=== PATIENT | female | born 1995 | race Caucasian/White ===

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

== ENCOUNTER 2017-03-19 18:35 | Emergency (ER) | payer SELFPAY ==
[~2017-03-19] VITALS: Ht 162.6 cm; Wt 71.5 kg
[~2017-03-19 18:35] MED LIST changes: +IBUP-1542 PO
[2017-03-19 19:04] VITALS: Ht 162.6 cm; Wt 71.5 kg
[2017-03-20] MEDS ORDERED: HYDR-906 PO (04:25)
[2017-03-20] MEDS ORDERED: IBUP-1542 PO (04:25)
[2017-03-20] MEDS ORDERED: AMOX1TAB10 PO (04:25)
== END 2017-03-19 20:14 | disposition left against medical advice (07) ==
LOC: FTE 18:35
DX: Z53.21 Procedure and treatment not carried out due to patient leaving prior to being seen by health care provider (principal)

== ENCOUNTER 2017-03-20 00:07 | Emergency (ER) | payer OTHER ==
[~2017-03-20] VITALS: Ht 160 cm; Wt 71.5 kg
[2017-03-20 00:11] VITALS: Ht 160 cm; Wt 71.5 kg
[2017-03-20] MEDS ORDERED: traMADol 50 MG TAB PO ONE (04:00)
[2017-03-20] MEDS ORDERED: IBUPROFEN 600 MG TAB PO ONE (04:00)
[2017-03-20] MEDS ORDERED: HYDR-906 PO (04:25)
[2017-03-20] MEDS ORDERED: AMOX1TAB10 PO (04:25)
[2017-03-20] MEDS ORDERED: IBUP-1542 PO (04:25)
--- NOTE | 2017-03-20 04:41 | ERD ---
ER Documentation Chief Complaint Date/Time DATE: 03/20/17 TIME: 04:38 Chief Complaint toothache HPI 22-year-old female presents here in emergency department for complaints of toothache left upper molar pain that started today. Patient discussed the pain as sharp pain, 6/10 scale, complains of pain on the left upper second and third molar. Patient did not take any medications to help with symptoms. ROS All systems reviewed and are negative except as per history of present illness. Medications Home Meds Active Scripts Hydrocodone/Acetaminophen (Cheyenne 5-325 Tablet) 1 Each Tablet, 1 TAB PO Q6H Y for SEVERE PAIN LEVEL 7-10, #20 TAB Prov:PORTER BURCIAGA NP 03/20/17 Ibuprofen* (Motrin*) 600 Mg Tab, 600 MG PO Q6H Y for PAIN AND OR ELEVATED TEMP, #30 TAB Prov:PORTER BURCIAGA NP 03/20/17 Amoxicillin/Potassium Clav (Amox-Clav 875-125 mg Tablet) 875-125 mg Tab, 1 TAB PO BID for 10 Days, #20 TAB Prov:PORTER BURCIAGA NP 03/20/17 Ibuprofen* (Motrin*) 600 Mg Tab, 600 MG PO Q6H Y for PAIN AND OR ELEVATED TEMP, #30 TAB Prov:KIMBER ROSALES MD 09/24/16 Reported Medications Vit-Iron Fumarate-FA ( Tablet) 1 Each Tablet, 1 EACH PO DAILY 04/03/13 Allergies Allergies: Coded Allergies: No Known Allergy (Unverified , 04/03/13) PMhx/Soc Medical and Surgical Hx: pt denies Surgical Hx History of Surgery: No Anesthesia Reaction: No Hx Neurological Disorder: No Hx Respiratory Disorders: Yes (Asthma) Hx Cardiac Disorders: No Hx Psychiatric Problems: No Hx Miscellaneous Medical Probl: No Hx Alcohol Use: No Hx Substance Use: No Hx Tobacco Use: No Smoking Status: Never smoker FmHx Family History: No coronary disease, No diabetes, No other Physical Exam Vitals Vital Signs Date Time Temp Pulse Resp B/P Pulse Ox O2 Delivery O2 Flow Rate FiO2 03/20/17 00:11 97.8 85 20 118/79 100 Physical Exam GENERAL: The patient is well developed and appropriate for usual state of health, in no apparent distress. HEENT: Atraumatic. Ears: Normal tympanic membrane, no erythema or bulging. No ear canal swelling. No ear discharge. Nose: normal nasal turbinates, no erythema or swelling. Normal nasal discharge. Throat: oropharynx clear. No tonsillar swelling or tonsillar exudates. No lymphadenopathy.noted decayed left upper second And third molar, no erythema noted, no gingival inflammation noted , no facial swelling. CHEST: Clear to auscultation bilaterally. There are no rales, wheezes or rhonchi. HEART: Regular rate and rhythm. No murmurs, clicks, rubs or gallops. No S3 or S4. ABDOMEN: Soft, nontender and nondistended. Good bowel sounds. No rebound or guarding. No gross peritonitis. No gross organomegaly or masses. No Reynoso sign or McBurney point tenderness. BACK: No midline or flank tenderness. EXTREMITIES: Equal pulses bilaterally. There is no peripheral clubbing, cyanosis or edema. No focal swelling or erythema. Full range of motion. Grossly neurovascularly intact. NEURO: Alert and oriented. Cranial nerves 2-12 intact. Motor strength in all 4 extremities with 5/5 strength. Sensation grossly intact. Normal speech and gait. SKIN: There is no apparent rash or petechia. The skin is warm and dry. HEMATOLOGIC AND LYMPHATIC: There is no evidence of excessive bruising or lymphedema. No gross cervical, axillary, or inguinal lymphadenopathy. Results 24 hrs Current Medications Medications (Trade) Dose Ordered Sig/Juan Pablo Route PRN Reason Start Time Stop Time Status Last Admin Dose Admin Ibuprofen (Motrin) 600 mg ONCE ONCE PO 03/20/17 04:00 03/20/17 04:01 DC 03/20/17 03:44 Tramadol HCl (Ultram) 50 mg ONCE ONCE PO 03/20/17 04:00 03/20/17 04:01 DC 03/20/17 03:44 Patient was given medication for pain here in emergency department, after treatment, patient verbalized feeling much better. Patient's pain is improved. Procedures/MDM Medical decision making: Patient's symptoms likely consistent with tooth decay causing dental pain. Patient does not have any symptoms of any dental abscess. Did not have any trauma and affected area. Patient is advised to see dentist, was given prescription for Augmentin to prevent infection, ibuprofen and Cheyenne Zofrld Zofran with primary doctor in 2-3 days for reevaluation of symptoms. Patient is advised to return to emergency department for any worsening symptoms. Disposition: Home. Stable. Departure Diagnosis: Primary Impression: Pain, dental Condition: Stable Patient Instructions: Dental Pain PORTER BURCIAGA NP Mar 20, 2017 04:41
== END 2017-03-20 05:03 | disposition home or self-care (01) ==
LOC: FTE 00:07
DX: K08.89 Other specified disorders of teeth and supporting structures (principal); J45.909 Unspecified asthma, uncomplicated
CPT/HCPCS: Z7502; Z7610; 99284

== ENCOUNTER 2017-05-30 01:21 | Emergency (ER) | payer OTHER ==
[~2017-05-30] VITALS: Ht 162.6 cm; Wt 72.0 kg
[~2017-05-30 01:21] MED LIST changes: +AMOX1TAB10 PO; +HYDR-906 PO
[2017-05-30 01:24] VITALS: Ht 162.6 cm; Wt 72.0 kg
[2017-05-30] MEDS ORDERED: IBUP-1542 PO (02:40)
[2017-05-30] MEDS ORDERED: TRAM50TA2 PO (02:40)
[2017-05-30] MEDS ORDERED: AMOX1TAB10 PO (02:40)
--- NOTE | 2017-05-30 02:59 | ERD ---
ER Documentation Chief Complaint Chief Complaint Left upper molar pain for a couple of days HPI 22-year-old female presents here to emergency department for complaints of left upper third molar pain that started 3 days ago. Patient describes the pain as throbbing pain, 8/10 scale, as was upon eating. Patient denies any fever or chills. Patient denies any facial swelling. Patient denies any trauma in affected area. Patient is able to open or close her mouth without any difficulty. ROS All systems reviewed and are negative except as per history of present illness. Medications Home Meds Active Scripts Amoxicillin/Potassium Clav (Amox-Clav 875-125 mg Tablet) 875-125 mg Tab, 1 TAB PO BID for 7 Days, #14 TAB Prov:PORTER BURCIAGA NP 05/30/17 Tramadol HCl (Tramadol HCl) 50 Mg Tablet, 50 MG PO Q6 for SEVERE PAIN LEVEL 7-10 , #20 TAB Prov:PORTER BURCIAGA NP 05/30/17 Ibuprofen* (Motrin*) 600 Mg Tab, 600 MG PO Q6H Y for PAIN AND OR ELEVATED TEMP, #30 TAB Prov:PORTER BURCIAGA NP 05/30/17 Hydrocodone/Acetaminophen (Sever[place] 5-325 Tablet) 1 Each Tablet, 1 TAB PO Q6H Y for SEVERE PAIN LEVEL 7-10, #20 TAB Prov:PORTER BURCIAGA NP 03/20/17 Ibuprofen* (Motrin*) 600 Mg Tab, 600 MG PO Q6H Y for PAIN AND OR ELEVATED TEMP, #30 TAB Prov:PORTER BURCIAGA NP 03/20/17 Amoxicillin/Potassium Clav (Amox-Clav 875-125 mg Tablet) 875-125 mg Tab, 1 TAB PO BID for 10 Days, #20 TAB Prov:PORTER BURCIAGA NP 03/20/17 Ibuprofen* (Motrin*) 600 Mg Tab, 600 MG PO Q6H Y for PAIN AND OR ELEVATED TEMP, #30 TAB Prov:KIMBER ROSALES MD 09/24/16 Reported Medications Vit-Iron Fumarate-FA ( Tablet) 1 Each Tablet, 1 EACH PO DAILY 04/03/13 Allergies Allergies: Coded Allergies: No Known Allergy (Unverified , 04/03/13) PMhx/Soc Medical and Surgical Hx: pt denies Surgical Hx History of Surgery: No Anesthesia Reaction: No Hx Neurological Disorder: No Hx Respiratory Disorders: Yes (Asthma) Hx Cardiac Disorders: No Hx Psychiatric Problems: No Hx Miscellaneous Medical Probl: No Hx Alcohol Use: No Hx Substance Use: No Hx Tobacco Use: Yes Smoking Status: Current every day smoker FmHx Family History: No coronary disease, No diabetes, No other Physical Exam Vitals Vital Signs Date Time Temp Pulse Resp B/P Pulse Ox O2 Delivery O2 Flow Rate FiO2 05/30/17 01:24 96.9 110 20 126/78 100 Physical Exam GENERAL: The patient is well developed and appropriate for usual state of health, in no apparent distress. HEENT: Atraumatic. Ears: Normal tympanic membrane, no erythema or bulging. No ear canal swelling. No ear discharge. Nose: normal nasal turbinates, no erythema or swelling. Normal nasal discharge. Throat: oropharynx clear. No tonsillar swelling or tonsillar exudates. No lymphadenopathy. Noted decaying left upper molar, mild erythema in the gingiva. CHEST: Clear to auscultation bilaterally. There are no rales, wheezes or rhonchi. HEART: Regular rate and rhythm. No murmurs, clicks, rubs or gallops. No S3 or S4. ABDOMEN: Soft, nontender and nondistended. Good bowel sounds. No rebound or guarding. No gross peritonitis. No gross organomegaly or masses. No Reynoso sign or McBurney point tenderness. BACK: No midline or flank tenderness. EXTREMITIES: Equal pulses bilaterally. There is no peripheral clubbing, cyanosis or edema. No focal swelling or erythema. Full range of motion. Grossly neurovascularly intact. NEURO: Alert and oriented. Cranial nerves 2-12 intact. Motor strength in all 4 extremities with 5/5 strength. Sensation grossly intact. Normal speech and gait. SKIN: There is no apparent rash or petechia. The skin is warm and dry. HEMATOLOGIC AND LYMPHATIC: There is no evidence of excessive bruising or lymphedema. No gross cervical, axillary, or inguinal lymphadenopathy. Results 24 hrs Current Medications Medications (Trade) Dose Ordered Sig/Juan Pablo Route PRN Reason Start Time Stop Time Status Last Admin Dose Admin Tramadol HCl (Ultram) 50 mg ONCE ONCE PO 05/30/17 03:00 05/30/17 03:01 05/30/17 02:53 Patient was given medication for pain here in emergency department, after treatment, patient verbalized feeling much better. Patient's pain is improved. Procedures/MDM Medical decision making: Patient symptoms was likely is consistent with dental pain caused by possibly impacted molar, can be early infection. No symptoms of any dental abscess. Patient was advised to follow-up with dentist for further evaluation and management. She was given a prescription for Augmentin, ibuprofen and tramadol, is advised to follow-up with primary care doctor in 1-2 days for reevaluation of symptoms. Patient was advised to return to emergency department for any worsening symptoms. Disposition: Home. Stable Departure Diagnosis: Primary Impression: Pain, dental Condition: Stable Patient Instructions: Dental Pain Referrals: [facility] ([facility] walk in clinic) PORTER BURCIAGA NP May 30, 2017 02:59
[2017-05-30] MEDS ORDERED: traMADol 50 MG TAB PO ONE (03:00)
== END 2017-05-30 03:00 | disposition home or self-care (01) ==
LOC: FTE 01:21
DX: K08.89 Other specified disorders of teeth and supporting structures (principal); J45.909 Unspecified asthma, uncomplicated; F17.210 Nicotine dependence, cigarettes, uncomplicated
CPT/HCPCS: Z7502; Z7610; 99284

== ENCOUNTER 2018-01-11 18:45 | Outpatient (CLI) | END 2018-01-11 21:30 | disposition home or self-care (01) ==

== ENCOUNTER 2018-03-04 15:26 | Emergency (ER) | END 2018-03-04 16:05 | disposition home or self-care (01) ==

== ENCOUNTER 2018-03-31 23:48 | Inpatient (IN) | END 2018-04-03 14:00 | disposition home or self-care (01) | DRG 807 ==

== ENCOUNTER 2018-10-14 21:05 | Emergency (ER) | payer SELFPAY ==
[~2018-10-14] VITALS: Ht 162.6 cm; Wt 78.2 kg
[~2018-10-14 21:05] MED LIST changes: -AMOX1TAB10 PO; -HYDR-906 PO; -IBUP-1542 PO
[2018-10-14 21:13] VITALS: BP 163/76; PULSE 69; RESP 18; Ht 162.6 cm; Wt 78.2 kg
[2018-10-15] MEDS ORDERED: NPH10OT BOTH EARS (10:23)
[2018-10-15] MEDS ORDERED: PSEU-79 PO (10:26)
== END 2018-10-14 22:37 | disposition left against medical advice (07) ==
LOC: FTE 21:05
DX: Z53.21 Procedure and treatment not carried out due to patient leaving prior to being seen by health care provider (principal)

== ENCOUNTER 2018-10-15 09:56 | Emergency (ER) | payer OTHER ==
[~2018-10-15] VITALS: Ht 162.6 cm; Wt 77.0 kg
[2018-10-15 10:00] VITALS: BP 129/68; PULSE 80; RESP 19; Ht 162.6 cm; Wt 77.0 kg
[2018-10-15] MEDS ORDERED: NPH10OT BOTH EARS (10:23)
[2018-10-15] MEDS ORDERED: PSEU-79 PO (10:26)
--- NOTE | 2018-10-15 14:48 | ERD ---
ER Documentation Chief Complaint Chief Complaint bilateral ear pain HPI 23-year-old female presenting with bilateral ear pain. Patient had some ringing in her ears with nasal congestion for the last 4 days. She has been using [id number] eardrops with no relief. Denies any fevers. Denies any headaches. Has some nasal congestion. Has not taken medications for symptoms. Denies medical problems. NKDA. Surgical history denies. Social history denies ROS All systems reviewed and are negative except as per history of present illness. Medications Home Meds Active Scripts Pseudoephedrine Hcl* (Suphedrin*) 30 Mg Tablet, 30 MG PO Q6 PRN for CONGESTION, #30 TAB Prov:IMMANUEL MOLINA PA-C 10/15/18 Neomycin/Polymyxin/Hydrocort* (Cortisporin* Otic) 10 Ml Susp, 4 DROP BOTH EARS QID for 7 Days, EA Prov:IMMANUEL MOLINA PA-C 10/15/18 Reported Medications Vit-Iron Fumarate-FA ( Tablet) 1 Each Tablet, 1 EACH PO DAILY 04/03/13 Allergies Allergies: Coded Allergies: No Known Allergy (Unverified , 03/04/18) PMhx/Soc History of Surgery: No Anesthesia Reaction: No Hx Neurological Disorder: No Hx Respiratory Disorders: Yes (Asthma) Hx Cardiac Disorders: No Hx Psychiatric Problems: No Hx Miscellaneous Medical Probl: No Hx Alcohol Use: No Hx Substance Use: No Hx Tobacco Use: Yes Smoking Status: Current some day smoker FmHx Family History: No diabetes, No coronary disease, No other Physical Exam Vitals Vital Signs Date Temp Pulse Resp B/P (MAP) Pulse Ox O2 O2 Flow FiO2 Time Delivery Rate 10/15/18 98.8 80 19 129/68 100 10:00 (88) Physical Exam GENERAL: The patient is well-appearing, well-nourished, in no acute distress HEENT: Atraumatic. Conjunctivae are pink. Pupils equal, round, and reactive to light. There is no scleral icterus. Tympanic membranes clear bilaterally. Edema noted to the external ear canal the left side. Oropharynx clear. No nystagmus or photophobia. NECK: C-spine is soft and supple. There is no meningismus. There is no cervical lymphadenopathy. CHEST: Clear to auscultation bilaterally. There are no rales, wheezes or rhonchi. HEART: Regular rate and rhythm. No murmurs, clicks, rubs or gallops. Procedures/MDM MDM: 23-year-old female presenting with findings of otitis externa. Patient also has nasal congestion with eustachian tube dysfunction. Patient was discharged with supportive medication and antibiotic drops. Patient is told if symptoms change or worsen to return immediately to the ER. All questions an swered at discharge Departure Diagnosis: Primary Impression: Otitis externa Condition: Stable Patient Instructions: External Ear Infection (Adult) Referrals: [facility] YOU HAVE RECEIVED A MEDICAL SCREENING EXAM AND THE RESULTS INDICATE THAT YOU DO NOT HAVE A CONDITION THAT REQUIRES URGENT TREATMENT IN THE EMERGENCY DEPARTMENT. FURTHER EVALUATION AND TREATMENT OF YOUR CONDITION CAN WAIT UNTIL YOU ARE SEEN IN YOUR DOCTORS OFFICE WITHIN THE NEXT 1-2 DAYS. IT IS YOUR RESPONSIBILITY TO MAKE AN APPOINTMENT FOR FOLOW-UP CARE. IF YOU HAVE A PRIMARY DOCTOR --you should call your primary doctor and schedule an appointment IF YOU DO NOT HAVE A PRIMARY DOCTOR YOU CAN CALL OUR PHYSICIAN REFERRAL HOTLINE AT IF YOU CAN NOT AFFORD TO SEE A PHYSICIAN YOU CAN CHOSE FROM THE FOLLOWING [facility] [address] [facility]. [facility] [address] [facility] [address] [facility] [facility] [address] [facility]. [facility] [address] [facility]. [facility]. [address] Additional Instructions: FOLLOW UP WITH YOUR PRIMARY CARE PHYSICIAN TOMORROW.Return to this facility if you are not improving as expected. IMMANUEL MOLINA PA-C Oct 15, 2018 14:48
== END 2018-10-15 10:48 | disposition home or self-care (01) ==
LOC: FTE 09:56
DX: H60.90 Unspecified otitis externa, unspecified ear (principal); J45.909 Unspecified asthma, uncomplicated; F17.210 Nicotine dependence, cigarettes, uncomplicated
CPT/HCPCS: 99283